=== PATIENT | female | born 1975 | race Caucasian/White ===

== ENCOUNTER 2016-12-09 13:07 | Emergency (ER) | payer OTHER ==
[~2016-12-09] VITALS: Ht 188 cm; Wt 281.0 kg
[~2016-12-09 13:07] MED LIST: ATEN50TA8 PO; CLB/200 PO; IBUP-1050 PO; LEVO150T9 PO; LZL/125 PO; OMEP20CA9 PO; PRED10TA PO
[2016-12-09 13:18] VITALS: Ht 188 cm; Wt 281.0 kg
[2016-12-09] MEDS ORDERED: CLB/200 PO (13:36)
[2016-12-09] MEDS ORDERED: LEVO200T6 PO (13:36)
[2016-12-09] MEDS ORDERED: LEVO150T9 PO (13:36)
[2016-12-09] MEDS ORDERED: LYR50 PO (13:36)
[2016-12-09] MEDS ORDERED: OXYCODONE HCL IR 5 MG TAB (IMMEDIATE RELEASE) PO STA (13:48)
--- NOTE | 2016-12-09 14:59 | EMERGENCY ROOM VISIT NOTE ---
ED Visit Note First contact with patient: 13:40 I have seen and examined this patient with Georgina Saleem and generally agree with the treatment plan as discussed.
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
[2016-12-09 15:48] VITALS: BP 153/83; PULSE 70; TEMP 36.8; O2SAT 96
== END 2016-12-09 14:45 | disposition home or self-care (01) ==
LOC: EDBD 13:07 → C.EDC 13:08 → C.EDB 14:45
DX: S40.012A Contusion of left shoulder, initial encounter (principal); M25.552 Pain in left hip; M25.562 Pain in left knee; E66.01 Morbid (severe) obesity due to excess calories; Z68.45 Body mass index [BMI] 70 or greater, adult; M17.12 Unilateral primary osteoarthritis, left knee; V43.62XA Car passenger injured in collision with other type car in traffic accident, initial encounter; Y93.89 Activity, other specified; Y92.89 Other specified places as the place of occurrence of the external cause; Y99.8 Other external cause status

== ENCOUNTER 2016-12-14 10:42 | Emergency (ER) | payer OTHER ==
[~2016-12-14] VITALS: Ht 188 cm; Wt 274.0 kg
[~2016-12-14 10:42] MED LIST changes: +LEVO200T6 PO; +LYR50 PO; -PRED10TA PO
[2016-12-14 10:46] VITALS: TEMP 36.8; Ht 188 cm; Wt 274.0 kg
[2016-12-14] MEDS ORDERED: CHOL1TAB42 PO (11:21)
[2016-12-14] MEDS ORDERED: IBUP-1050 PO (11:21)
[2016-12-14] MEDS ORDERED: AZEL0.056 NAE (11:22)
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
[2016-12-14] MEDS ORDERED: HYDR-5688 PO (12:49)
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
[2016-12-14 12:58] VITALS: BP 161/80; PULSE 92; O2SAT 95
== END 2016-12-14 13:00 | disposition home or self-care (01) ==
LOC: C.EDB 10:44 → C.EDD 13:00
DX: M25.551 Pain in right hip (principal); M79.671 Pain in right foot; V43.62XA Car passenger injured in collision with other type car in traffic accident, initial encounter; M79.7 Fibromyalgia; E66.01 Morbid (severe) obesity due to excess calories

== ENCOUNTER 2017-09-13 11:56 | Emergency (ER) | payer OTHER ==
[~2017-09-13 11:56] MED LIST changes: +AZEL0.056 NAE; +CHOL1TAB42 PO
[2017-09-13 12:02] VITALS: TEMP 36.5; Ht 188 cm
--- NOTE | 2017-09-13 12:26 | EMERGENCY ROOM VISIT NOTE ---
ED Visit Note First contact with patient: 12:06 CHIEF COMPLAINT: Filling fell out a front tooth HISTORY OF PRESENT ILLNESS: This 42-year-old female presents the ER stating that her filling fell out of her right upper front tooth on . Since that time small pieces of tooth or breaking off. She called her dentist but the earliest they could give her an appointment was on September 23. She called in here today and was told that she could get some dental wax to put over the area until she sees a dentist. The patient admits only minimal pain in the tooth. She states it does hurt if cold or hot gets on the tooth. REVIEW OF SYSTEMS: 6 system review was performed and was negative unless stated otherwise in history of present illness. PMH: The patient is healthy; kidney disease, asthma, thyroid disorder, stomach problems SOCIAL HISTORY: Patient lives with her mother. The patient denies any tobacco or alcohol use. PHYSICAL EXAM: Vital Signs: Were reviewed Reviewed Nurse's notes. GEN.: Morbidly obese 42-year-old white female appears in no acute distress. MENTAL Status: Alert and oriented 3. MOUTH: Right upper front tooth with a small portion missing. Surrounding gingiva without erythema or edema. EMERGENCY COURSE: The patient was evaluated. The patient was given dental wax. The patient was discharged home in stable condition. DIAGNOSIS: Dental caries and fracture DISCHARGE INSTRUCTIONS & TREATMENT: Use dental wax as directed to cover the tooth. Take amoxicillin as prescribed. Keep scheduled appointment with your dentist for definitive care. Problem List Medical Problems: (1) BMI greater than 40 Status: Chronic (2) Foot laceration Status: Resolved (3) Need for tetanus booster Status: Resolved (4) Obesities, morbid Status: Chronic Current/Historical Medications Scheduled Atenolol (Tenormin), 50 MG PO BID Azelastine HCl (Azelastine HCl), 1 SPRAY AGNIESZKA BID Celecoxib (CeleBREX), 200 MG PO DAILY Cholecalciferol (Vitamin D), 5,000 UNIT PO DAILY Indapamide (Lozol), 1.25 MG PO BID Levothyroxine Sodium (Levothyroxine Sodium), 150 MCG PO 5XWK Levothyroxine Sodium (Levothyroxine Sodium), 300 MCG PO 2XWK Omeprazole (Prilosec), 20 MG PO HS Pregabalin (Lyrica), 50 MG PO BID Scheduled PRN Ibuprofen (Advil), 800 MG PO DIRECTED PRN for Pain Ibuprofen (Advil), 200-600 MG PO Q4H PRN for Pain Allergies Coded Allergies: Dust Mite Extract (Verified Allergy, Unknown, unkown, 12/14/16) Etodolac (Verified Allergy, Unknown, itchy, 12/14/16) Molds and Smuts (Verified Allergy, Unknown, unkown, 12/14/16) No Known Drug Allergy (Verified Allergy, Unknown, none, 12/14/16) No Known Food Allergy (Verified Allergy, Unknown, none, 12/14/16) Uncoded Allergies: HAYFEVER (Allergy, Unknown, unknown, 01/31/12) Vital Signs Date Time Temp Pulse Resp B/P (MAP) Pulse Ox O2 Delivery O2 Flow Rate FiO2 09/13/17 12:02 36.5 90 22 150/97 98 Room Air Departure Information Referrals Ilya Simmons M.D. (MEDICAL) (PCP) Patient Instructions My [facility]
[2017-09-13] MEDS ORDERED: AMOX500C3 PO (12:28)
[2017-09-13 12:35] VITALS: BP 148/86; PULSE 86; O2SAT 96
[2017-09-13] MEDS ORDERED: METO50TA16 PO (12:37)
[2017-09-13] MEDS ORDERED: ULT50 PO (12:37)
[2017-09-13] MEDS ORDERED: SALI0.6510 NAE (12:37)
== END 2017-09-13 12:34 | disposition home or self-care (01) ==
LOC: C.EDB 11:57 → C.EDD 12:34
DX: K02.9 Dental caries, unspecified (principal); S02.5XXA Fracture of tooth (traumatic), initial encounter for closed fracture; E07.9 Disorder of thyroid, unspecified; N28.9 Disorder of kidney and ureter, unspecified; J45.909 Unspecified asthma, uncomplicated; E66.01 Morbid (severe) obesity due to excess calories; Z79.899 Other long term (current) drug therapy; X58.XXXA Exposure to other specified factors, initial encounter

== ENCOUNTER 2017-12-30 01:31 | Emergency (ER) | payer OTHER ==
[~2017-12-30] VITALS: Ht 188 cm; Wt 254.0 kg
[~2017-12-30 01:31] MED LIST changes: -ATEN50TA8 PO; -AZEL0.056 NAE; -LYR50 PO; +METO50TA16 PO; +SALI0.6510 NAE; +ULT50 PO
[2017-12-30 01:33] VITALS: TEMP 36.9; Ht 188 cm; Wt 254.0 kg
[2017-12-30] MEDS ORDERED: ONDANSETRON INJ 2 MG/ML 2 ML VIAL IV STA (02:28)
[2017-12-30] MEDS ORDERED: DiphenhydrAMINE HCL 50 MG/ML VIAL IV STA (02:28)
[2017-12-30] MEDS ORDERED: ACETAMINOPHEN IV 1,000 MG in EMPTY BAG 0 ML IV STA (02:28)
[2017-12-30] MEDS ORDERED: SODIUM CHLORIDE 0.9% 1000ML 1,000 ML IV STA (02:28)
[2017-12-30] MEDS ORDERED: ACETAMINOPHEN IV 1000MG/100ML IV STA (02:37)
[2017-12-30] MEDS ORDERED: KETOROLAC TROMETHAMINE 30 MG/ML VIAL IV STA (03:32)
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
[2017-12-30 04:17] VITALS: BP 140/81; PULSE 69; O2SAT 96
== END 2017-12-30 04:19 | disposition home or self-care (01) ==
LOC: C.EDB 01:33 → C.EDA 04:19
DX: R51 Headache (principal); R11.0 Nausea; E66.01 Morbid (severe) obesity due to excess calories; I10 Essential (primary) hypertension; Z82.0 Family history of epilepsy and other diseases of the nervous system